=== PATIENT | female | born 1990 | race Caucasian/White ===

== ENCOUNTER 2017-12-19 11:53 | Emergency (ER) | payer MEDICAID ==
[2017-12-19 12:50] LABS: BILIRUBIN,URINE NEGATIVE (NEGATIVE); GLUCOSE, URINE (UA) NEGATIVE (NEGATIVE); KETONES,URINE (UA) NEGATIVE (NEGATIVE); LEUKOCYTE ESTERASE, URINE NEGATIVE (NEGATIVE); NITRITE,URINE NEGATIVE (NEGATIVE); OCCULT BLOOD,URINE NEGATIVE (NEGATIVE); PROTEIN,URINE NEGATIVE (NEGATIVE); UROBILINOGEN,URINE 0.2 (NORMAL) E.U./dL (NORMAL)
[2017-12-19 12:51] LABS: CLARITY,URINE CLEAR (CLEAR); HCG UR QUAL NEGATIVE
--- NOTE | 2017-12-19 14:45 | ED Physician Documentation ---
PD HPI ABD PAIN - Stated complaint Stated Complaint: LEFT SIDE PX - Chief complaint Chief Complaint: Abd Pain - History obtained from History obtained from: Patient - History of Present Illness Timing - onset: How many days ago (2) Timing - duration: Days (2) Timing - details: Gradual onset, Still present Quality: Aching, Dull, Pain Location: LUQ Improved by: Laying still Worsened by: Moving, Position, Palpation Associated symptoms: No: Nausea, Vomiting, Diarrhea, Constipation, Loss of appetite, Weight loss Similar symptoms before: Diagnosis (colitis associated with diverticulitis.) Recently seen: Not recently seen - Additional information Additional information: 27-year-old female who had her spleen taken out earlier this year force hereditary spherocytosis had an episode of colitis following that and required hospitalization with IV antibiotic. She improved and she has now moved to the area and over the last 2 days she has began to develop some pain in the left upper quadrant. She does not feel that she is ill now. She states the pain is much less than it was on her prior admission. Review of Systems Constitutional: denies: Fever, Chills, Myalgias, Fatigue Eyes: denies: Loss of vision, Decreased vision Ears: denies: Ear pain, Foreign body Nose: denies: Rhinorrhea / runny nose, Congestion Throat: denies: Sore throat Cardiac: denies: Chest pain / pressure Respiratory: denies: Dyspnea, Cough, Wheezing GI: reports: Abdominal Pain. denies: Nausea, Vomiting, Diarrhea : denies: Dysuria, Frequency Skin: denies: Rash Musculoskeletal: denies: Neck pain, Back pain, Extremity pain Neurologic: denies: Generalized weakness, Focal weakness, Numbness PD PAST MEDICAL HISTORY - Past Medical History Past Medical History: No - Allergies Allergies/Adverse Reactions: Allergies Allergy/AdvReac Type Severity Reaction Status Date / Time No Known Drug Allergies Allergy Verified 12/19/17 12:10 - Social History Does the pt smoke?: No Smoking Status: Never smoker PD ED PE NORMAL - Vitals Vital signs reviewed: Yes (hypertensive mild ) - General General: Alert and oriented X 3, No acute distress, Well developed/nourished - HEENT HEENT: Atraumatic, PERRL, EOMI - Neck Neck: Supple, no meningeal sign - Cardiac Cardiac: RRR, No murmur - Respiratory Respiratory: No respiratory distress, Clear bilaterally - Abdomen Abdomen: Soft, Other (mild left upper quadrant tenderness to palpation associated with LLQ pain as well. No garding or rebound tendeness. no right sided tenderness. ) - Back Back: No CVA TTP, No spinal TTP - Derm Derm: Normal color, Warm and dry, No rash - Extremities Extremities: No deformity, No edema - Neuro Neuro: Alert and oriented X 3, linderman operator 2-12 intact, No motor deficit, No sensory deficit, Normal speech Eye Opening: Spontaneous Motor: Obeys Commands Verbal: Oriented GCS Score: 15 - Psych Psych: Normal mood, Normal affect Results - Vitals Vitals: Vital Signs - 24 hr 12/19/17 12:07 Temperature 36.6 C Heart Rate 88 Respiratory 16 Rate Blood Pressure 129/85 H O2 Saturation 100 Oxygen O2 Source Room air - Labs Labs: Laboratory Tests 12/19/17 12:30 Urine Color YELLOW Urine Clarity CLEAR Urine pH 6.0 Ur Specific [place] <=1.005 Urine Protein NEGATIVE Urine Glucose (UA) NEGATIVE Urine Ketones NEGATIVE Urine Occult Blood NEGATIVE Urine Nitrite NEGATIVE Urine Bilirubin NEGATIVE Urine Urobilinogen 0.2 (NORMAL) Ur Leukocyte Esterase NEGATIVE Ur Microscopic Review NOT INDICATED Urine Culture Comments NOT INDICATED Urine HCG, Qual NEGATIVE - Rads (name of study) CT abd/pel without Radiology: Prelim report reviewed (Impression: 1. No acute intra-abdominal abnormality demonstrated status post splenectomy. 2 Small 10 mm sclerotic nodule right iliac bone likely representing benign/indolent process in the absence of primary malignancy.), EMP read indepedently, See rad report PD MEDICAL DECISION MAKING - ED course Complexity details: reviewed results, re-evaluated patient, considered differential, d/w patient ED course: 27-year-old female with a prior history of diverticulitis has pain in the left upper quadrant and along the left side with some tenderness and no fever. CT scanning is without evidence of intra-abdominal abnormality to account for her pain. The patient indicates her pain is a low level pressure-like sensation that is similar to what she had previous with this. She is diagnosed with abdominal pain of uncertain etiology and she does have follow-up scheduled for the of this month. - Sepsis Event Vital Signs: Vital Signs - 24 hr 12/19/17 12:07 Temperature 36.6 C Heart Rate 88 Respiratory 16 Rate Blood Pressure 129/85 H O2 Saturation 100 Oxygen O2 Source Room air Departure - Departure Disposition: 01 Home, Self Care Clinical Impression: Abdominal pain Condition: Stable Instructions: ED Abdominal Pain Unkn Cause Follow-Up: [facility] [Provider Group]
--- NOTE | 2017-12-19 16:02 | CT Report ---
Reason: LUQ pain prior colitis Procedure Date: 12/19/2017 Accession Number: [id number] / [id number] Procedure: CT - Abdomen/Pelvis W/O CPT Code: FULL RESULT: EXAM: CT ABDOMEN AND PELVIS EXAM DATE: 12/19/2017 03:29 PM. CLINICAL HISTORY: Left upper quadrant pain. COMPARISONS: None. TECHNIQUE: Routine helical CT imaging was performed through the abdomen and pelvis. IV contrast: No. Enteric contrast: No. Reconstructions: Coronal and sagittal. In accordance with CT protocol optimization, one or more of the following dose reduction techniques were utilized for this exam: automated exposure control, adjustment of mA and/or KV based on patient size, or use of iterative reconstructive technique. FINDINGS: Lung Bases: Unremarkable. Solid organs: The spleen is surgically absent. There is embolization changes and surgical clips seen in the left upper quadrant region. Noncontrast imaging of the solid organs demonstrates no acute findings. There is no nephrolithiasis or hydronephrosis. Gallbladder/Bile Ducts: Unremarkable. Peritoneal Cavity/Bowel: Normal. No free fluid, free air or adenopathy. No masses or acute inflammatory process. The appendix is well visualized and normal. Pelvic Organs: Normal. The bladder and visualized pelvic organs are within normal limits. Vasculature: No aneurysms or other significant abnormality. Bones: A 10 mm sclerotic nodule is seen in the right iliac bone (image 55, series 3). No acute osseous abnormality is seen. Other: None. IMPRESSION: 1. No acute intra-abdominal abnormality demonstrated status post splenectomy. 2. Small 10 mm sclerotic nodule right iliac bone likely representing benign/indolent process in the absence of primary malignancy. [facility]
[2017-12-19 16:18] VITALS: BP 131/88
== END 2017-12-19 16:18 | disposition home or self-care (01) ==
LOC: ED 11:53
DX: R10.9 Unspecified abdominal pain (principal); M89.8X8 Other specified disorders of bone, other site; Z87.19 Personal history of other diseases of the digestive system; Z90.81 Acquired absence of spleen
CPT/HCPCS: 74176; 81001; 81003; 81025; 87086; 99283

== ENCOUNTER 2017-12-25 11:21 | Outpatient (CLI) | payer MEDICAID ==
[2017-12-25 18:56] LABS: ALBUMIN 4.6 g/dL (3.2-5.5); ALBUMIN/GLOBULIN RATIO 1.6 (1.0-2.2); CALCIUM 9.2 mg/dL (8.5-10.3); CREATININE 0.7 mg/dL (0.4-1.0); TOTAL PROTEIN 7.4 g/dL (6.7-8.2)
[2017-12-25 19:01] LABS: BASOPHILS # (AUTO) 0.1 10^3/uL (0.0-0.1); EOSINOPHILS # (AUTO) 0.2 10^3/uL (0.0-0.7); EOSINOPHILS % (AUTO) 1.5 %; HGB - HEMOGLOBIN 15.1 g/dL (12.0-16.0); LYMPHOCYTES # (AUTO) 3.4 10^3/uL (1.5-3.5); LYMPHOCYTES % (AUTO) 25.4 %; MEAN CORPUSCULAR HEMOGLOBIN 30.4 pg (27.0-31.0); MEAN CORPUSCULAR HGB CONC 33.2 g/dL (32.0-36.0); MEAN CORPUSCULAR VOLUME 91.8 fL (81.0-99.0); MEAN PLATELET VOLUME 8.5 fL (7.9-10.8); MONOCYTES # (AUTO) 1.3 10^3/uL (0.0-1.0); MONOCYTES % (AUTO) 9.7 %; NEUTROPHILS # (AUTO) 8.4 10^3/uL (1.5-6.6); NEUTROPHILS % (AUTO) 62.4 %; PLT - PLATELET COUNT 677 10^3/uL (130-450); RED BLOOD COUNT 4.98 10^6/uL (4.20-5.40); RED CELL DISTRIBUTION WIDTH 13.8 % (12.0-15.0); WHITE BLOOD COUNT 13.4 x10^3/uL (4.8-10.8)
== END 2017-12-25 11:22 | disposition home or self-care (01) ==
LOC: LAB.N 11:21
PROVIDERS: ATTEND Nurse Practitioner Gerontology
DX: Z13.9 Encounter for screening, unspecified (principal)
CPT/HCPCS: 36415; 80053; 84443; 85025